=== PATIENT | male | born 1950 | race Caucasian/White ===

== ENCOUNTER 2017-02-08 22:12 | Emergency (ER) | payer MEDICAID ==
[~2017-02-08] VITALS: Ht 175.3 cm; Wt 100.0 kg
[2017-02-09 02:26] LABS: ALANINE AMINOTRANSFERASE 21 IU/L (13-61); ALBUMIN 3.6 g/dL (3.4-5.0); BASOPHILS % 0.8 % (0.0-2.0); CALCIUM 8.6 mg/dL (8.5-10.1); CARBON DIOXIDE 27 mEq/L (21-32); CHLORIDE 107 mEq/L (98-107); HEMATOCRIT. 43.2 % (42.0-52.0); HEMOGLOBIN. 14.4 g/dL (14.0-18.0); INDEX HEMOLYSI 1 (1-3); INDEX ICTERIC 1 (1-4); INDEX LIPEMIC 1 (1-3); LYMPHOCYTES % 19.1 % (20.0-50.0); MEAN CORPUSCULAR HEMOGLOBIN 29.2 pg (28.0-32.0); MEAN CORPUSCULAR HGB CONC 33.3 g/dL (31.0-37.0); MEAN CORPUSCULAR VOLUME 87.8 fL (80.0-94.0); MEAN PLATELET VOLUME 9.5 fl (7.4-10.4); MONOCYTES % 11.3 % (2.0-8.0); NEUTROPHILS % 65.8 % (40.0-76.0); PLATELET 189 x1000/uL (130-400); RED BLOOD CELL COUNT 4.92 mill/uL (4.7-6.1); RED CELL DISTRIBUTION WIDTH 12.5 % (11.6-14.6); UREA NITROGEN BLOOD 13 mg/dL (7-21); WHITE BLOOD COUNT 4.8 x1000/uL (4.5-11.0); eGFR 51 mL/min (>60)
[2017-02-09 02:27] LABS: ANION GAP 12
[2017-02-09 02:38] VITALS: BP 179/76
== END 2017-02-09 03:10 | disposition home or self-care (01) ==
LOC: ER 22:12
DX: R05 Cough (principal); I10 Essential (primary) hypertension; R50.9 Fever, unspecified
CPT/HCPCS: 36415; 71010; 80053; 85025; 99285

== ENCOUNTER 2017-05-20 14:09 | Inpatient (IN) | payer SELFPAY ==
[~2017-05-20] VITALS: Ht 177.8 cm; Wt 113.4 kg
[2017-05-20 16:05] LABS: BASOPHILS % 0.6 % (0.0-2.0); EOSINOPHILS % 0.9 % (0.0-5.0); HEMATOCRIT. 39.2 % (42.0-52.0); HEMOGLOBIN. 13.2 g/dL (14.0-18.0); LYMPHOCYTES % 8.2 % (20.0-50.0); MEAN CORPUSCULAR HEMOGLOBIN 29.3 pg (28.0-32.0); MEAN CORPUSCULAR VOLUME 87.2 fL (80.0-94.0); MONOCYTES % 4.1 % (2.0-8.0); NEUTROPHILS % 86.2 % (40.0-76.0); PLATELET 210 x1000/uL (130-400); RED CELL DISTRIBUTION WIDTH 13.1 % (11.6-14.6)
[2017-05-20 16:09] LABS: CHLORIDE 110 mEq/L (98-107)
[2017-05-20 16:10] LABS: PROTHROMBIN TIME 10.8 sec
[2017-05-20 16:17] LABS: CARBON DIOXIDE 27 mEq/L (21-32)
[2017-05-20] MEDS ORDERED: CEFAZOLIN 1000MG PREMIX 50 ML IV ONE (17:30)
[2017-05-20] MEDS ORDERED: ACETAMINOPHEN 325MG TABLET PO ONE (21:15)
[2017-05-20 21:30] VITALS: BP 164/77
[2017-05-20 23:00] VITALS: BP 164/77
[2017-05-20] MEDS ORDERED: HYDROCODONE/ACETAMINOPHEN 5/325MG TABLET PO PRN (23:00)
[2017-05-20] MEDS ORDERED: CLONIDINE 0.1MG TABLET PO PRN (23:00)
[2017-05-20 23:30] VITALS: BP 164/77
[2017-05-20] MEDS: AMLODIPINE 10MG TABLET PO SCH (23:36)
[2017-05-20] MEDS: ACETAMINOPHEN 325MG TABLET PO PRN (23:36)
[2017-05-20] MEDS: DIPHENHYDRAMINE 25MG CAPSULE PO PRN (23:36)
[2017-05-21] VITALS: BP 131/70
[2017-05-21] MEDS ORDERED: VANCOMYCIN 2,000 MG in DEXT 5% WATER 500 ML IV NR (01:00)
[2017-05-21] MEDS: CEFTRIAXONE 1 G PREMIX 50 ML IV SCH (01:24)
[2017-05-21 04:00] VITALS: BP 128/60
[2017-05-21 07:02] LABS: HEMATOCRIT 37.6 % (42.0-52.0); HEMOGLOBIN 12.7 g/dL (14.0-18.0); MEAN CORPUSCULAR HEMOGLOBIN 29.3 pg (28.0-32.0); MEAN CORPUSCULAR VOLUME 86.7 fL (80.0-94.0); PLATELET 206 x1000/uL (130-400); RED BLOOD CELL COUNT 4.34 mill/uL (4.7-6.1); RED CELL DISTRIBUTION WIDTH 12.9 % (11.6-14.6)
[2017-05-21 08:00] VITALS: BP 124/67
[2017-05-21] MEDS: AMLODIPINE 10MG TABLET PO SCH (09:28)
[2017-05-21 12:00] VITALS: BP 112/64
[2017-05-21 16:00] VITALS: BP 127/61
[2017-05-21] MEDS: VANCOMYCIN 750 MG PREMIX 150 ML IV SCH (16:02)
[2017-05-21] MEDS: ACETAMINOPHEN 325MG TABLET PO PRN (16:13)
[2017-05-21] MEDS: DIPHENHYDRAMINE 25MG CAPSULE PO PRN (16:13)
[2017-05-21 19:49] LABS: *AMPHETAMINES SCREEN URINE NEGATIVE (NEGATIVE); *BARBITURATES SCREEN URINE NEGATIVE (NEGATIVE); *BENZODIAZEPINES SCREEN URINE NEGATIVE (NEGATIVE); *COCAINE SCREEN URINE NEGATIVE (NEGATIVE); CANNABINOID URINE SCREEN NEGATIVE (NEGATIVE); METHADONE URINE SCREEN NEGATIVE (NEGATIVE); OPIATES URINE SCREEN NEGATIVE (NEGATIVE); PHENCYCLIDINE URINE SCREEN NEGATIVE (NEGATIVE)
[2017-05-21 20:00] VITALS: BP 125/65
[2017-05-21] MEDS: ENOXAPARIN 30MG/0.3ML SYR SUBCUT SCH (20:18)
[2017-05-21] MEDS: SODIUM CHLORIDE 0.45% 1,000 ML IV SCH (20:19)
[2017-05-22] VITALS: BP 120/50
[2017-05-22] MEDS: VANCOMYCIN 750 MG PREMIX 150 ML IV SCH ×2 (01:32→12:04)
[2017-05-22] MEDS: CEFTRIAXONE 1 G PREMIX 50 ML IV SCH (01:32)
[2017-05-22 04:00] VITALS: BP 139/65
[2017-05-22] MEDS: ACETAMINOPHEN 325MG TABLET PO PRN ×2 (05:59→17:25)
[2017-05-22 08:00] VITALS: BP 138/65
[2017-05-22] MEDS: AMLODIPINE 10MG TABLET PO SCH (08:27)
[2017-05-22] MEDS: ENOXAPARIN 30MG/0.3ML SYR SUBCUT SCH ×2 (08:27→20:21)
[2017-05-22 12:00] VITALS: BP 143/69
[2017-05-22] MEDS: BACITRACIN ZINC 15GM TUBE TOP SCH ×2 (12:03→20:21)
[2017-05-22] MEDS: SODIUM CHLORIDE 0.45% 1,000 ML IV SCH ×2 (15:23→20:21)
[2017-05-22 16:00] VITALS: BP 149/69
[2017-05-22 18:54] LABS: CLARITY URINE CLEAR (CLEAR); COLOR URINE YELLOW (YELLOW); GLUCOSE URINE NEGATIVE (NEGATIVE); KETONES URINE NEGATIVE (NEGATIVE); LEUKOCYTE ESTERASE URINE NEGATIVE (NEGATIVE); NITRITE URINE NEGATIVE (NEGATIVE); OCCULT BLOOD URINE NEGATIVE (NEGATIVE); PROTEIN URINE NEGATIVE (NEGATIVE); SPECIFIC GRAVITY URINE 1.013 (1.005-1.030); UROBILINOGEN URINE 0.2 E.U./dL (0.2-1.0)
[2017-05-22 20:00] VITALS: BP 141/63
[2017-05-22] MEDS: ASCORBIC ACID 250 MG TABLET PO SCH (20:21)
[2017-05-22 20:48] LABS: BASOPHILS % 0.8 % (0.0-2.0); EOSINOPHILS % 3.5 % (0.0-5.0); HEMATOCRIT. 37.3 % (42.0-52.0); HEMOGLOBIN. 12.5 g/dL (14.0-18.0); LYMPHOCYTES % 11.7 % (20.0-50.0); MEAN CORPUSCULAR HEMOGLOBIN 29.3 pg (28.0-32.0); MEAN CORPUSCULAR VOLUME 87.7 fL (80.0-94.0); MEAN PLATELET VOLUME 10.7 fl (7.4-10.4); PLATELET 227 x1000/uL (130-400); RED BLOOD CELL COUNT 4.25 mill/uL (4.7-6.1)
[2017-05-22 21:27] LABS: CARBON DIOXIDE 28 mEq/L (21-32); CHLORIDE 105 mEq/L (98-107)
[2017-05-23] VITALS: BP 120/52
[2017-05-23] MEDS: CEFTRIAXONE 1 G PREMIX 50 ML IV SCH (00:26)
[2017-05-23] MEDS: VANCOMYCIN 750 MG PREMIX 150 ML IV SCH ×2 (00:26→14:15)
[2017-05-23 04:00] VITALS: BP 121/52
[2017-05-23 08:00] VITALS: BP 115/68
[2017-05-23] MEDS: AMLODIPINE 10MG TABLET PO SCH (10:37)
[2017-05-23] MEDS: MULTIVITAMINS,THER W-MINERALS TABLET PO SCH (10:37)
[2017-05-23] MEDS: ASCORBIC ACID 250 MG TABLET PO SCH ×2 (10:37→20:59)
[2017-05-23] MEDS: ZINC SULFATE 220 MG ( 50 ) CAPSULE PO SCH (10:37)
[2017-05-23] MEDS: ENOXAPARIN 30MG/0.3ML SYR SUBCUT SCH ×2 (10:38→20:58)
[2017-05-23 12:00] VITALS: BP 121/82
[2017-05-23 12:10] LABS: CHLORIDE 108 mEq/L (98-107)
[2017-05-23 12:15] LABS: BASOPHILS % 0.4 % (0.0-2.0); EOSINOPHILS % 3.2 % (0.0-5.0); HEMATOCRIT. 38.6 % (42.0-52.0); MEAN CORPUSCULAR HEMOGLOBIN 29.1 pg (28.0-32.0); MEAN CORPUSCULAR VOLUME 86.4 fL (80.0-94.0); MEAN PLATELET VOLUME 10.8 fl (7.4-10.4); MONOCYTES % 6.5 % (2.0-8.0); NEUTROPHILS % 77.9 % (40.0-76.0); PLATELET 225 x1000/uL (130-400); RED BLOOD CELL COUNT 4.46 mill/uL (4.7-6.1); RED CELL DISTRIBUTION WIDTH 12.6 % (11.6-14.6)
[2017-05-23 12:17] LABS: CARBON DIOXIDE 23 mEq/L (21-32)
[2017-05-23] MEDS: SODIUM CHLORIDE 0.45% 1,000 ML IV SCH ×2 (14:20→23:59)
[2017-05-23 16:00] VITALS: BP 127/70
[2017-05-23] MEDS: BACITRACIN ZINC 15GM TUBE TOP SCH ×2 (16:10→20:58)
[2017-05-23 20:00] VITALS: BP 127/59
[2017-05-24] VITALS: BP 113/48
[2017-05-24] MEDS: CEFTRIAXONE 1 G PREMIX 50 ML IV SCH
[2017-05-24 04:00] VITALS: BP 139/56
[2017-05-24 08:00] VITALS: BP 127/63
[2017-05-24] MEDS ORDERED: CEPH-569 PO (11:16)
[2017-05-24] MEDS: AMLODIPINE 10MG TABLET PO SCH (11:18)
[2017-05-24] MEDS: ASCORBIC ACID 250 MG TABLET PO SCH ×2 (11:18→20:22)
[2017-05-24] MEDS: ZINC SULFATE 220 MG ( 50 ) CAPSULE PO SCH (11:18)
[2017-05-24] MEDS: MULTIVITAMINS,THER W-MINERALS TABLET PO SCH (11:18)
[2017-05-24] MEDS: ENOXAPARIN 30MG/0.3ML SYR SUBCUT SCH ×2 (11:19→20:22)
[2017-05-24 12:00] VITALS: BP 134/61
[2017-05-24] MEDS: SODIUM CHLORIDE 0.45% 1,000 ML IV SCH (14:09)
[2017-05-24] MEDS: VANCOMYCIN 750 MG PREMIX 150 ML IV SCH ×2 (14:09)
[2017-05-24 16:00] VITALS: BP 137/60
[2017-05-24] MEDS: BACITRACIN ZINC 15GM TUBE TOP SCH ×2 (16:02→20:23)
[2017-05-24 20:00] VITALS: BP 129/62
[2017-05-25] VITALS: BP 111/62
[2017-05-25] MEDS: SODIUM CHLORIDE 0.45% 1,000 ML IV SCH ×2 (01:05→10:45)
[2017-05-25] MEDS: VANCOMYCIN 750 MG PREMIX 150 ML IV SCH ×2 (01:06→13:43)
[2017-05-25] MEDS: CEFTRIAXONE 1 G PREMIX 50 ML IV SCH (01:06)
[2017-05-25 04:00] VITALS: BP 151/59
[2017-05-25 08:00] VITALS: BP 153/75
[2017-05-25] MEDS: BACITRACIN ZINC 15GM TUBE TOP SCH (09:17)
[2017-05-25] MEDS: ZINC SULFATE 220 MG ( 50 ) CAPSULE PO SCH (09:17)
[2017-05-25] MEDS: ASCORBIC ACID 250 MG TABLET PO SCH (09:18)
[2017-05-25] MEDS: MULTIVITAMINS,THER W-MINERALS TABLET PO SCH (09:18)
[2017-05-25] MEDS: AMLODIPINE 10MG TABLET PO SCH (09:18)
[2017-05-25] MEDS: ENOXAPARIN 30MG/0.3ML SYR SUBCUT SCH (09:18)
[2017-05-25 12:00] VITALS: BP 129/84
[2017-05-25 15:23] VITALS: BP 129/73
== END 2017-05-25 15:45 | disposition home or self-care (01) | DRG 383 ==
LOC: ER 16:30 → 6EST 17:27 → ENRESERV 20:31
PROVIDERS: ADMIT Family Medicine; ATTEND Family Medicine
DX: L03.115 Cellulitis of right lower limb (principal); N17.9 Acute kidney failure, unspecified; D64.9 Anemia, unspecified; J98.11 Atelectasis; E66.9 Obesity, unspecified; Z68.35 Body mass index [BMI] 35.0-35.9, adult; Z82.49 Family history of ischemic heart disease and other diseases of the circulatory system; Z83.3 Family history of diabetes mellitus
CPT/HCPCS: 36415; 71010; 80048; 80053; 80202; 80305; 81003; 83605; 85025; 85027; 85610; 87040; 93005; 93971; 96365; 97116; 97162; 99285; C1893; J0690; J0696; J1650; J3370; J7040; J7060; J7070; Q0163